=== PATIENT | male | born 1975 | race Caucasian/White ===

== ENCOUNTER 2020-02-15 00:07 | Emergency (ER) | END 2020-02-15 00:26 | disposition left against medical advice (07) | LOC: ERS 00:07 | DX: S90.01XA Contusion of right ankle, initial encounter (principal); S00.83XA Contusion of other part of head, initial encounter; F10.129 Alcohol abuse with intoxication, unspecified; V89.2XXA Person injured in unspecified motor-vehicle accident, traffic, initial encounter | CPT/HCPCS: 99284; G0390 ==